=== PATIENT | male | born 1985 | race American Indian/Alaskan Native ===

== ENCOUNTER 2018-06-13 19:05 | Emergency (ER) | payer BC ==
[2018-06-13 19:15] VITALS: BP 120/79; PULSE 77; RESP 14; TEMP 98; O2SAT 99
[2018-06-13] MEDS ORDERED: cefTRIAXone (Rocephin) 250 mg Inj IM STA (19:37)
--- NOTE | 2018-06-13 20:03 | C.PDOC ---
History Of Present Illness Patient is a 32 year old male who presents to the ED for STD screening and treatment. Patient reports that his girlfriend was recently diagnosed with chlamydia, but otherwise denies any symptoms. He denies any dysuria, penile discharge, or penile lesions. Time Seen by Provider: 06/13/18 19:34 Chief Complaint (Nursing): Male Genitourinary History Per: Patient History/Exam Limitations: no limitations Associated Symptoms: denies: Urinary Symptoms, Other (penile discharge or lesions) Recent travel outside of the [place]: No Additional History Per: Patient Past Medical History Reviewed: Historical Data, Nursing Documentation, Vital Signs Vital Signs: Last Vital Signs Temp 98 F 06/13/18 19:13 Pulse 77 06/13/18 19:13 Resp 14 06/13/18 19:13 BP 120/79 06/13/18 19:13 Pulse Ox 99 06/13/18 19:13 - Medical History PMH: No Chronic Diseases Surgical History: No Surg Hx Family History: States: No Known Family Hx - Social History Hx Alcohol Use: No Hx Substance Use: No - Immunization History Hx Tetanus Toxoid Vaccination: Yes Hx Influenza Vaccination: Yes Hx Pneumococcal Vaccination: No Review Of Systems Genitourinary: Negative for: Dysuria, Penile Discharge, Other (penile lesions) Physical Exam - Physical Exam Appears: Non-toxic, No Acute Distress Skin: Normal Color, Warm, Dry Head: Atraumatic, Normacephalic Eye(s): bilateral: Normal Inspection Gastrointestinal/Abdominal: Normal Exam, No Tenderness Male Genital: Other (refused genital exam) Neurological/Psych: Oriented x3, Normal Speech ED Course And Treatment O2 Sat by Pulse Oximetry: 99 (on RA) Pulse Ox Interpretation: Normal Progress Note: Plan: Labs. Zithromax 1000mg PO. Rocephin 250mg IM. Pt was educated in safe sex and advised f/u at STD clinic for all testings Disposition Counseled Patient/Family Regarding: Diagnosis, Need For Followup, Rx Given - Disposition Referrals: [facility] [Outside] Disposition: HOME/ ROUTINE Disposition Time: 20:01 Condition: STABLE Additional Instructions: Follow up in STD clinic for all other testings Practice safe sex Return to ER if worse Instructions: Sexually-Transmitted Diseases (DC) Forms: [employer] (Nepali) - Clinical Impression Clinical Impression: Exposure to STD - PA / INTELLIGENT SYSTEMS ENGINEER / Resident Statement MD/DO has examined the patient and agrees with the treatment plan. - Scribe Statement The provider has reviewed the documentation as recorded by the Elisa Cruz All medical record entries made by the Elisa were at my direction and personally dictated by me. I have reviewed the chart and agree that the record accurately reflects my personal performance of the history, physical exam, medical decision making, and the department course for this patient. I have also personally directed, reviewed, and agree with the discharge instructions and disposition.
[2018-06-13 20:45] LABS: URINE BACTERIA RARE (<OCC); URINE BILIRUBIN NEGATIVE (NEGATIVE); URINE BLOOD NEGATIVE (NEGATIVE); URINE CLARITY Hazy (Clear); URINE COLOR Yellow (YELLOW); URINE GLUCOSE (UA) NORMAL (Normal); URINE LEUKOCYTE ESTERASE NEG Leu/uL (Negative); URINE PROTEIN NEGATIVE (NEGATIVE); URINE UROBILINOGEN NORMAL mg/dL (0.2-1.0)
== END 2018-06-13 20:21 | disposition home or self-care (01) ==
LOC: C.ER 19:05
DX: Z20.2 Contact with and (suspected) exposure to infections with a predominantly sexual mode of transmission (principal)
CPT/HCPCS: 81001; 87491; 87591; 96372; 99283; J0696